=== PATIENT | male | born 1980 | race Caucasian/White ===

== ENCOUNTER 2022-07-25 11:13 | Emergency (ER) | payer SELFPAY ==
[2022-07-25] MEDS ORDERED: HYDROCODONE/APAP 10/325 TAB ONE (12:53)
[2022-07-25] MEDS ORDERED: LIDOCAINE 1% MPF 5 ML VIAL ONE (12:53)
--- NOTE | 2022-07-25 14:54 | EDPHYS ---
Physician Documentation [facility] Name: Mich Paz Age: 42 yrs Sex: Male : 1980 Arrival Date: 07/25/2022 Time: 11:14 Bed 11 Private MD: ED Physician Grayson Huerta HPI: 07/25 11:53 This 42 yrs old Male presents to ER via Ambulatory with complaints of spider bite, Arm jmm Pain - swelling. 11:53 the patient presents with a swollen area of the left arm. Onset: The symptoms/episode jmm began/occurred gradually, 5 day(s) ago. Possible cause(s): insect sting, spider bite. Associated signs and symptoms: Pertinent positives: swelling, Pertinent negatives: fever. Modifying factors: the symptoms are alleviated by nothing, the symptoms are aggravated by nothing. This is a 42-year-old male with no chronic medical conditions that presents emerged department with complaints of left arm swelling beginning after an insect bite which the patient initially noticed while working outside 5 days ago. Patient states that he felt the bite. Denies fever chills. Historical: - Allergies: 11:57 No Known Allergies; bm7 - Home Meds: 11:57 None [Active]; bm7 - PMHx: 11:57 None; bm7 - PSHx: 11:57 ankle; hand; bm7 - Immunization history:: Adult Immunizations up to date, Client reports having NOT received the Covid vaccine. - Social history:: Smoking status: Patient reports the use of cigarette tobacco products, smokes one pack cigarettes per day. ROS: 11:53 Constitutional: Negative for fever, chills, and weight loss, Cardiovascular: Negative jmm for chest pain, palpitations, and edema, Respiratory: Negative for shortness of breath, cough, wheezing, and pleuritic chest pain. 11:53 Skin: Positive for erythema, swelling. 11:53 All other systems are negative. Exam: 11:53 Constitutional: This is a well developed, well nourished patient who is awake, alert, jmm and in no acute distress. Head/Face: atraumatic. Eyes: EOMI, no conjunctival erythema appreciated ENT: Moist Mucus Membranes Neck: Trachea midline, Supple Chest/axilla: Normal chest wall appearance and motion. Cardiovascular: Regular rate and rhythm. No edema appreciated Respiratory: Normal respirations, no respiratory distress appreciated Abdomen/GI: Non distended Back: Normal ROM 11:53 Skin: Erythema and induration noted to the left upper extremity superior to the elbow. 11:53 Neuro: Orientation: is normal, Mentation: is normal, Memory: is normal. 11:53 Psych: Behavior/mood is pleasant, cooperative. Vital Signs: 11:56 BP 128 / 88; Pulse 100; Resp 16; Temp 97.2(TE); Pulse Ox 100% on R/A; Weight 104.33 kg bm7 (R); Height 5 ft. 11 in. (180.34 cm); Pain 8/10; 11:56 Body Mass Index 32.08 (104.33 kg, 180.34 cm) bm7 Procedures: 14:49 I \T\ D: Incision and drainage was performed for an abscess of the left arm Prepped with [facility] Betadine, Anesthetized with 10 ml's 1% Lidocaine. Incised with #11 blade. Drained large amount purulent fluid. Loculations removed. Packed with iodoform gauze, Dressing: sterile 4x4 gauze, the patient tolerated the procedure well. MDM: 11:54 Patient medically screened. [facility] 14:49 Data reviewed: vital signs, nurses notes. Counseling: I had a detailed discussion with [facility] the patient and/or guardian regarding: the historical points, exam findings, and any diagnostic results supporting the discharge/admit diagnosis. 14:50 Counseling: I had a detailed discussion with the patient and/or guardian regarding: the [facility] need for outpatient follow up, to return to the emergency department if symptoms worsen or persist or if there are any questions or concerns that arise at home. 14:50 ED course: Patient tolerated the I\T\D well. Large amount of purulent drainage was jm expressed. Wound was packed with iodoform gauze. Patient prescribed oral antibiotics and advised follow-up with general surgery for further evaluation. Patient otherwise given strict return precautions. Patient understood agrees plan of care.. 07 11:53 Order name: Incision \T\ Drainage Setup; Complete Time: 12:48 [facility] Administered Medications: 12:48 Drug: [place] (HYDROcodone-acetaminophen) 10 mg-325 mg 1 tabs Route: PO; vg1 13:10 Follow up: Response: No adverse reaction; Pain is decreased iw 15:17 Drug: Bactrim (trimethoprim-sulfamethoxazole) (160 mg-800 mg (DS) 1 tablet Route: PO; iw 15:30 Follow up: Response: No adverse reaction iw 15:17 Drug: Doxycycline 100 mg Route: PO; iw 15:30 Follow up: Response: No adverse reaction iw Disposition: 22:59 Co-signature as Attending Physician, Grayson Huerta DO I was immediately available on-site ms3 in the Emergency Department for consultation in the care of the patient. . Disposition Summary: 07/25/22 14:54 Discharge Ordered Location: Home [facility] Condition: Stable jm Diagnosis - Cutaneous Abscess of the Left Upper Extremity [facility] Followup: [facility] - With: Neil Jin MD - When: 2 - 3 days - Reason: Recheck today's complaints, Continuance of care, Re-evaluation by your physician Discharge Instructions: - Discharge Summary Sheet [facility] - Incision and Drainage [facility] Forms: - Medication Reconciliation Form [facility] - Thank You Letter [facility] - Antibiotic Education [facility] - Prescription Opioid Use [facility] Prescriptions: - Doxycycline Hyclate 100 mg Oral Tablet - take 1 tablet by ORAL route every 12 hours; 20 tablet; Refills: 0, Product [facility] Selection Permitted - Tramadol 50 mg Oral Tablet - take 1 tablet by ORAL route every 8 hours as needed; 20 tablet; Refills: 0, [facility] Product Selection Permitted - Bactrim DS 800-160 mg Oral Tablet - take 1 tablet by ORAL route every 12 hours for 10 days; 20 tablet; Refills: 0, [facility] Product Selection Permitted Signatures: Prashanth Rodriguez PA PA jmm Williams, Irene RN LOLI iw Jerica Conde RN RN vg1 Grayson Huerat DO DO ms3 Jeanne Souza, LOLI RN bm7
--- NOTE | 2022-07-25 14:54 | ER ---
Nurse's Notes [facility] Name: Mich Paz Age: 42 yrs Sex: Male : 1980 Arrival Date: 07/25/2022 Time: 11:14 Bed 11 Private MD: Diagnosis: Cutaneous Abscess of the Left Upper Extremity Presentation: 07/25 11:56 Chief complaint: Patient states: I got bit by a spider five days ago and now it is bm7 really infected. Coronavirus screen: At this time, the client does not indicate any symptoms associated with coronavirus-19. Ebola Screen: No symptoms or risks identified at this time. Initial Sepsis Screen: Does the patient meet any 2 criteria? No. Patient's initial sepsis screen is negative. Does the patient have a suspected source of infection? Yes: Skin breakdown/wound. Risk Assessment: Do you want to hurt yourself or someone else? Patient reports no desire to harm self or others. Onset of symptoms is unknown. 11:56 Method Of Arrival: Ambulatory [facility] 11:56 Acuity: NILSA 3 bm7 Triage Assessment: 11:57 General: Appears in no apparent distress. uncomfortable, Behavior is calm, cooperative, bm7 appropriate for age. Pain: Complains of pain in left antecubital area and left elbow Pain does not radiate. EENT: No deficits noted. No signs and/or symptoms were reported regarding the EENT system. Neuro: No deficits noted. Cardiovascular: No deficits noted. Respiratory: No deficits noted. GI: No deficits noted. No signs and/or symptoms were reported involving the gastrointestinal system. : No deficits noted. No signs and/or symptoms were reported regarding the genitourinary system. Derm: Skin is intact, is healthy with good turgor, Skin is dry, Skin temperature is warm Abscess located on left elbow is half dollar sized, has purulent drainage, has foul odor, is hot to touch, is red, Reports pain that is 10 out of 10 on a pain scale. Musculoskeletal: Reports pain in left elbow. Historical: - Allergies: 11:57 No Known Allergies; bm7 - Home Meds: 11:57 None [Active]; bm7 - PMHx: 11:57 None; bm7 - PSHx: 11:57 ankle; hand; bm7 - Immunization history:: Adult Immunizations up to date, Client reports having NOT received the Covid vaccine. - Social history:: Smoking status: Patient reports the use of cigarette tobacco products, smokes one pack cigarettes per day. Screenin:29 Abuse screen: Denies threats or abuse. Denies injuries from another. Nutritional iw screening: No deficits noted. Tuberculosis screening: No symptoms or risk factors identified. Fall Risk None identified. Assessment: 12:00 General: Appears in no apparent distress. Behavior is calm, cooperative. iw 12:00 Pain: Complains of pain in left arm and left elbow. Neuro: Level of Consciousness is iw awake, alert, obeys commands, Oriented to person, place, time, situation. Cardiovascular: Patient's skin is warm and dry. Respiratory: Respiratory effort is even, unlabored, Respiratory pattern is regular. Derm: Abscess located on left elbow is half dollar sized. Musculoskeletal: Range of motion: intact in all extremities. Vital Signs: 11:56 BP 128 / 88; Pulse 100; Resp 16; Temp 97.2(TE); Pulse Ox 100% on R/A; Weight 104.33 kg bm7 (R); Height 5 ft. 11 in. (180.34 cm); Pain 8/10; 11:56 Body Mass Index 32.08 (104.33 kg, 180.34 cm) bm7 ED Course: 11:14 Patient arrived in ED. am2 11:20 Prashanth Rodriguez PA is PHCP. m 11:20 Grayson Huerta DO is Attending Physician. jmm 11:57 Triage completed. bm7 11:57 Arm band placed on right wrist. bm7 12:00 Patient has correct armband on for positive identification. iw 12:37 Natali Potts, RN is Primary Nurse. iw 14:54 Neil Jin MD is Referral Physician. jmm 15:00 Assist provider with I \T\ D: of an abscess on left elbow Set up I\T\D tray. Performed by iw Prashanth CLAYTON Wound packed. iodoform gauze, Dressing with 4X4s, tape Patient tolerated well. Patient did not have IV access during this emergency room visit. Administered Medications: 12:48 Drug: [place] (HYDROcodone-acetaminophen) 10 mg-325 mg 1 tabs Route: PO; vg1 13:10 Follow up: Response: No adverse reaction; Pain is decreased iw 15:17 Drug: Bactrim (trimethoprim-sulfamethoxazole) (160 mg-800 mg (DS) 1 tablet Route: PO; iw 15:30 Follow up: Response: No adverse reaction iw 15:17 Drug: Doxycycline 100 mg Route: PO; iw 15:30 Follow up: Response: No adverse reaction iw Medication: 15:30 VIS not applicable for this client. iw Outcome: 14:54 Discharge ordered by MD. ceballos 15:29 Discharged to home ambulatory. iw 15:29 Condition: good 15:29 Discharge instructions given to patient, Instructed on discharge instructions, follow up and referral plans. medication usage, Demonstrated understanding of instructions, follow-up care, medications, Prescriptions given X 2. 15:30 Patient left the ED. iw Signatures: Prashanth Rodriguez PA PA jmm Williams, Irene, RN RN iw Shannon Mosqueda Victoria, RN RN vg1 Jeanne Souza, RN RN bm7 Corrections: (The following items were deleted from the chart) 07/26 07:25 07/25 15:00 General: Appears in no apparent distress. iw iw
[2022-07-25] MEDS ORDERED: DOXYCYCLINE 100 MG CAP PO ONE (15:16)
[2022-07-25] MEDS ORDERED: SMZ./TMP. 800/160 MG TABLET ONE (15:16)
[2022-07-25 16:00] VITALS: BP 128/88; TEMP 97.2; O2SAT 100
== END 2022-07-25 15:30 | disposition home or self-care (01) ==
LOC: ER 11:13
PROC: 0H9CXZZ Drainage of Left Upper Arm Skin, External Approach (ICD-10-PCS; principal; 2022-07-25)
DX: L02.414 Cutaneous abscess of left upper limb (principal); F17.210 Nicotine dependence, cigarettes, uncomplicated
CPT/HCPCS: 99283; J2001

== ENCOUNTER 2022-12-09 19:46 | Emergency (ER) | payer SELFPAY ==
[2022-12-09] MEDS ORDERED: KETOROLAC 30 MG/ML INJ ONE (20:11)
[2022-12-09] MEDS ORDERED: ONDANSETRON 4 MG/2 ML VIAL ONE (20:11)
[2022-12-09] MEDS ORDERED: NA CHLORIDE 0.9% 1,000 ML ONE (20:11)
[2022-12-09 20:33] LABS: Absolute Lymphocytes (CBC) 1.8 K/uL (0.7-4.9); Hematocrit 46.3 % (39.6-49.0); Lymphocytes % 17.8 % (15.3-44.8); MCV 89.2 fL (80-100); RBC Red Blood Cell Count 5.19 M/uL (4.33-5.43)
[2022-12-09 20:37] LABS: Albumin 3.5 g/dL (3.4-5.0); Bilirubin Total 0.7 mg/dL (0.2-1.0); Protein, Total 6.7 g/dL (6.4-8.2)
--- NOTE | 2022-12-09 20:51 | RAD REPORT ---
EXAM DESCRIPTION: CT - Stone Protocol - 12/09/2022 8:42 pm CLINICAL HISTORY: Flank pain. hematuria COMPARISON: No comparisons TECHNIQUE: Axial images were obtained without oral or IV contrast. Lack of contrast limits solid org an and vascular assessment. The [id number] spans the entirety of the system partially obscuring uppermost abdomen and lung bases. Coronal reformatted images were obtained and reviewed. All CT scans are performed using dose optimization technique as appropriate and may include automated exposure control or mA/KV adjustment according to patient size. FINDINGS: The lower lung maguire are clear. Imaged portions of the liver and spleen show no suspicious findings on non-contrast imaging. The panc reas and adrenal glands are normal. No pathologic lymphadenopathy in the abdomen or pelvis. Punctate calculus is seen in the inferior calyx right kidney. No hydronephrosis. No bowel obstruction, free air, free fluid or abscess. Normal appendix noted. No significant bony abnormality. IMPRESSION: Punctate calculus inferior calyx right kidney. No hydronephrosis.
[2022-12-09] MEDS ORDERED: LIDOCAINE 4% PATCH ONE (21:23)
[2022-12-09 21:54] LABS: Urine Blood Negative (Negative); Urine Glucose Negative (Negative); Urine Protein Negative (Negative); Urine Specific Gravity >=1.030 (1.005-1.030); Urine pH 6.5 (5.0-7.0)
[2022-12-09 22:14] LABS: Urine Bacteria None Seen /HPF (<20); Urine Mucus Slight /HPF (None Seen); Urine RBC None Seen /HPF (None Seen)
--- NOTE | 2022-12-09 22:17 | EDPHYS ---
Physician Documentation [facility] Name: Mich Paz Age: 42 yrs Sex: Male : 1980 Arrival Date: 12/09/2022 Time: 19:47 Bed 2 Private MD: ED Physician Ta Quinn HPI: 12/09 22:00 This 42 yrs old Male presents to ER via EMS with complaints of Right Low Back Pain, cp Hematuria. 22:00 The patient presents with pain that is acute, with no known mechanism of injury. The cp symptoms are located in the right low back. 22:00 Onset: The symptoms/episode began/occurred gradually, 3 hour(s) ago. The pain does not cp radiate. Associated signs and symptoms: Pertinent positives: hematuria times 1 week, Pertinent negatives: abdominal pain, constipation, dysuria, fever, incontinence. The problem was sustained from unknown cause. Patient brought to ED by law enforcement with c/o right lower back pain and hematuria for 1 week. Historical: - Allergies: 20:00 No Known Allergies; pf1 - Home Meds: 20:00 None [Active]; pf1 - PSHx: 20:00 Ankle; hand; pf1 - Immunization history:: Adult Immunizations not up to date. - Social history:: Smoking status: unknown. ROS: 22:05 Constitutional: Negative for body aches, chills, fever, poor PO intake. cp 22:05 Eyes: Negative for injury, pain, redness, and discharge. cp 22:05 Cardiovascular: Negative for chest pain, palpitations. 22:05 Respiratory: Negative for cough, shortness of breath, wheezing. 22:05 Abdomen/GI: Negative for abdominal pain, vomiting, diarrhea, constipation. 22:05 Back: Positive for right low back pain. 22:05 : Positive for hematuria, Negative for burning with urination, difficulty urinating, testicular pain 22:05 Skin: Negative for cellulitis, rash. 22:05 All other systems are negative. Exam: 22:10 Constitutional: The patient appears in no acute distress, alert, awake, non-toxic, well cp developed, well nourished, uncomfortable. 22:10 Head/Face: Normocephalic, atraumatic. cp 22:10 Eyes: Periorbital structures: appear normal, Conjunctiva: normal, no exudate, no injection, Sclera: no appreciated abnormality, Lids and lashes: appear normal, bilaterally. 22:10 ENT: External ear(s): are unremarkable, Nose: is normal, Mouth: Lips: moist, Oral mucosa: pink and intact, moist, Posterior pharynx: is normal, airway is patent, no erythema, no exudate. 22:10 Chest/axilla: Inspection: normal. 22:10 Cardiovascular: Rate: normal, Rhythm: regular. 22:10 Respiratory: the patient does not display signs of respiratory distress, Respirations: normal, no use of accessory muscles, no retractions, labored breathing, is not present, Breath sounds: are clear throughout, no decreased breath sounds, no stridor, no wheezing. 22:10 Abdomen/GI: Inspection: abdomen appears normal, Bowel sounds: active, all quadrants, Palpation: soft, in all quadrants, moderate abdominal tenderness, in the posterior aspect of right lateral abdomen, rebound tenderness, is not appreciated. 22:10 Back: pain, that is moderate, of the right low back, ROM is painful, with all movement, vertebral tenderness, is not appreciated. 22:10 Skin: cellulitis, is not appreciated, no rash present. 22:10 Neuro: Orientation: to person, place \T\ time. Mentation: is normal, Motor: moves all fours, strength is normal, Sensation: is normal. Vital Signs: 19:47 BP 126 / 94; Pulse 74; Resp 18; Temp 97.9; Pulse Ox 98% on R/A; Weight 97.52 kg; Height pf1 5 ft. 11 in. (180.34 cm); Pain 8/10; 20:30 BP 131 / 86; Pulse 86; Resp 18; Pulse Ox 98% on R/A; Pain 6/10; pf1 21:50 BP 119 / 74; Pulse 74; Resp 18; Pulse Ox 98% on R/A; Pain 6/10; pf1 22:29 BP 127 / 78; Pulse 74; Resp 18; Temp 97.9(O); Pulse Ox 98% on R/A; Pain 7/10; pf1 19:47 Body Mass Index 29.99 (97.52 kg, 180.34 cm) pf1 MDM: 19:59 Patient medically screened. cp 22:16 Data reviewed: vital signs, nurses notes, lab test result(s), radiologic studies, CT cp scan. 12/09 20:02 Order name: CBC with Diff; Complete Time: 21:01 cp 12/09 21:01 Interpretation: Normal except: PLT 148. cp 12/09 20:02 Order name: CMP; Complete Time: 21:01 cp 12/09 21:02 Interpretation: Reviewed. cp 12/09 20:02 Order name: Lipase; Complete Time: 21:01 cp 12/09 20:02 Order name: Urine Microscopic Only; Complete Time: 22:15 cp 12/09 22:16 Interpretation: Reviewed. cp 12/09 20:02 Order name: CT Stone Protocol; Complete Time: 21:01 cp 12/09 21:02 Interpretation: Report reviewed. cp 12/09 21:54 Order name: Urine Dipstick-Ancillary; Complete Time: 22:00 EDMS 12/09 20:02 Order name: IV Saline Lock; Complete Time: 20:15 cp 12/09 20:02 Order name: Labs collected and sent; Complete Time: 20:15 cp Administered Medications: 20:22 Drug: NS 0.9% 1000 ml Route: IV; Rate: 1 bolus; Site: left antecubital; aa9 21:20 Follow up: IV Status: Completed infusion; IV Intake: 1000ml pf1 20:22 Drug: Zofran (Ondansetron) 4 mg Route: IVP; Site: left antecubital; aa9 21:38 Follow up: Response: No adverse reaction aa9 20:22 Drug: Ketorolac 15 mg Route: IVP; Site: left antecubital; aa9 21:20 Follow up: Response: No adverse reaction; Pain is decreased; RASS: Alert and Calm (0) pf1 21:24 Drug: Lidoderm Patch 5 % (700 mg/patch) 1 patches {Note: lower back.} Route: Topical; aa9 Site: affected area; Disposition: 12/10 02:36 Co-signature as Attending Physician, Ta Quinn MD I reviewed the patient's care rt provided by the Advanced Practice Provider and agree with the diagnosis and treatment plan. Disposition Summary: 12/09/22 22:16 Discharge Ordered Location: Home cp Problem: new cp Symptoms: have improved cp Condition: Stable cp Diagnosis - Low back pain cp Followup: cp - With: Private Physician - When: 2 - 3 days - Reason: Recheck today's complaints Discharge Instructions: - Discharge Summary Sheet cp - Acute Back Pain, Adult cp Forms: - Medication Reconciliation Form cp - Thank You Letter cp - Antibiotic Education cp - Prescription Opioid Use cp Prescriptions: - Cyclobenzaprine 10 mg Oral Tablet - take 1 tablet by ORAL route every 8 hours As needed; 20 tablet; Refills: 0, cp Product Selection Permitted - Diclofenac Sodium 75 mg Oral tablet,delayed release (DR/EC) - take 1 tablet by ORAL route 2 times per day; 20 tablet; Refills: 0, Product cp Selection Permitted Signatures: Dispatcher [employer] EDMS Joss Zamora PA PA cp Avalos, Aylin, RN RN aa9 Ta Quinn MD MD rt Jackie duran RN RN pf1
--- NOTE | 2022-12-09 22:17 | ER ---
Nurse's Notes [facility] Name: Mich Paz Age: 42 yrs Sex: Male : 1980 Arrival Date: 12/09/2022 Time: 19:47 Bed 2 Private MD: Diagnosis: Low back pain Presentation: 12/09 19:47 Chief complaint: Patient states: C/O intermittent right flank pain 8,onset 3 hours ago pf1 with hematuria,onset 1 week. 19:47 Coronavirus screen: Vaccine status: Patient reports being unvaccinated. Client denies pf1 travel out of the [place] in the last 14 days. At this time, the client does not indicate any symptoms associated with coronavirus-19. Ebola Screen: Patient negative for fever greater than or equal to 101.5 degrees Fahrenheit, and additional compatible Ebola Virus Disease symptoms. Initial Sepsis Screen: Does the patient meet any 2 criteria? No. Patient's initial sepsis screen is negative. Does the patient have a suspected source of infection? No. Patient's initial sepsis screen is negative. Risk Assessment: Do you want to hurt yourself or someone else? Patient reports no desire to harm self or others. Onset of symptoms was December 02, 2022. 19:47 Method Of Arrival: EMS: [facility] pf1 19:47 Acuity: NILSA 3 pf1 Triage Assessment: 19:47 General: see nurse assessment. pf1 Historical: - Allergies: 20:00 No Known Allergies; pf1 - Home Meds: 20:00 None [Active]; pf1 - PSHx: 20:00 Ankle; hand; pf1 - Immunization history:: Adult Immunizations not up to date. - Social history:: Smoking status: unknown. Screenin:50 [facility] ED Fall Risk Assessment (Adult) History of falling in the last 3 months, pf1 including since admission No falls in past 3 months (0 pts) Confusion or Disorientation No (0 pts) Intoxicated or Sedated No (0 pts) Impaired Gait No (0 pts) Mobility Assist Device Used No (0 pt) Altered Elimination No (0 pt) Score/Fall Risk Level 0 - 2 = Low Risk Oriented to surroundings, Maintained a safe environment, Educated pt \T\ family on fall prevention, incl call for assistance when getting out of bed, Assessed \T\ reinforced patient's understanding of fall precautions, Provided non-skid footwear, Hourly rounding (assess needs \T\ fall precautionary measures) done, Used ambulatory aids as needed (educated on \T\ assisted with), Used gait belt as appropriate. 21:33 Abuse screen: Denies threats or abuse. Denies injuries from another. Nutritional aa9 screening: No deficits noted. Tuberculosis screening: No symptoms or risk factors identified. Assessment: 19:47 General: Appears in no apparent distress. uncomfortable, well groomed, well developed, pf1 Behavior is calm, cooperative, appropriate for age, quiet. 19:47 Pain: Complains of pain in right low back Pain currently is 8 out of 10 on a pain pf1 scale. Pain began 3 hours ago. Neuro: No deficits noted. Level of Consciousness is awake, alert, obeys commands, Oriented to person, place, time, situation. Cardiovascular: No deficits noted. Capillary refill < 3 seconds Patient's skin is warm and dry. Respiratory: No deficits noted. Airway is patent Trachea midline Respiratory effort is even, unlabored, Respiratory pattern is regular, symmetrical, Breath sounds are clear bilaterally. GI: No deficits noted. Abdomen is flat, non-distended, Bowel sounds present X 4 quads. Abd is soft and non tender X 4 quads. : Reports hematuria for 1 week, denies any blood clots. EENT: No deficits noted. No signs and/or symptoms were reported regarding the EENT system. Derm: No deficits noted. No signs and/or symptoms reported regarding the dermatologic system. Musculoskeletal: No signs and/or symptoms reported regarding the musculoskeletal system. Reports pain in right low back. 20:30 Reassessment: Patient appears in no apparent distress at this time. Patient and/or pf1 family updated on plan of care and expected duration. Pain level reassessed. Patient states feeling better. Patient states symptoms have improved. Patient C/O right lower back pian of 6 at this time.. 21:32 General: Appears uncomfortable, Behavior is calm, cooperative, appropriate for age. aa9 Pain: Complains of pain in left low back and right low back. Neuro: Level of Consciousness is awake, alert, obeys commands, Oriented to person, place, time, situation. Respiratory: Airway is patent Respiratory effort is even, unlabored. Vital Signs: 19:47 BP 126 / 94; Pulse 74; Resp 18; Temp 97.9; Pulse Ox 98% on R/A; Weight 97.52 kg; Height pf1 5 ft. 11 in. (180.34 cm); Pain 8/10; 20:30 BP 131 / 86; Pulse 86; Resp 18; Pulse Ox 98% on R/A; Pain 6/10; pf1 21:50 BP 119 / 74; Pulse 74; Resp 18; Pulse Ox 98% on R/A; Pain 6/10; pf1 22:29 BP 127 / 78; Pulse 74; Resp 18; Temp 97.9(O); Pulse Ox 98% on R/A; Pain 7/10; pf1 19:47 Body Mass Index 29.99 (97.52 kg, 180.34 cm) pf1 ED Course: 19:47 Patient arrived in ED. rv1 19:47 No provider procedures requiring assistance completed. Maintain EMS IV. Dressing pf1 intact. Good blood return noted. Site clean \T\ dry. Gauge \T\ site: 18 gauge to LAC. 19:50 Patient has correct armband on for positive identification. Placed in gown. Bed in low pf1 position. Call light in reach. Side rails up X 1. chief operations officer at . 19:50 Arm band placed on right wrist. pf1 19:52 Jackie duran RN is Primary Nurse. pf1 19:54 Joss Zamora PA is PHCP. cp 19:54 Ta Quinn MD is Attending Physician. cp 20:00 Triage completed. pf1 20:22 CBC with Diff Sent. aa9 20:22 CMP Sent. aa9 20:22 Lipase Sent. aa9 20:44 CT Stone Protocol In Process Unspecified. EDMS 22:30 IV discontinued, intact, bleeding controlled, No redness/swelling at site. Pressure pf1 dressing applied. Administered Medications: 20:22 Drug: NS 0.9% 1000 ml Route: IV; Rate: 1 bolus; Site: left antecubital; aa9 21:20 Follow up: IV Status: Completed infusion; IV Intake: 1000ml pf1 20:22 Drug: Zofran (Ondansetron) 4 mg Route: IVP; Site: left antecubital; aa9 21:38 Follow up: Response: No adverse reaction aa9 20:22 Drug: Ketorolac 15 mg Route: IVP; Site: left antecubital; aa9 21:20 Follow up: Response: No adverse reaction; Pain is decreased; RASS: Alert and Calm (0) pf1 21:24 Drug: Lidoderm Patch 5 % (700 mg/patch) 1 patches {Note: lower back.} Route: Topical; aa9 Site: affected area; Medication: 22:32 VIS not applicable for this client. pf1 Intake: 21:20 IV: 1000ml; Total: 1000ml. pf1 Outcome: 22:16 Discharge ordered by . cp 22:31 Discharged to Law Enforcement pf1 22:31 Condition: improved 22:31 Discharge instructions given to patient, Instructed on discharge instructions, follow up and referral plans. medication usage, Demonstrated understanding of instructions, follow-up care, medications, Prescriptions given X 2. 22:33 Patient left the ED. pf1 Signatures: Dispatcher [employer] EDMS Joss Zamora PA PA cp Avalos, Aylin, RN RN aa9 Jackie duran RN RN pf1 Cielo Garzon 1
[2022-12-09 23:28] VITALS: TEMP 97.9; O2SAT 98
[2022-12-09 23:32] VITALS: BP 127/78
== END 2022-12-09 22:33 | disposition home or self-care (01) ==
LOC: ER 19:46
DX: M54.50 Low back pain, unspecified (principal); R31.9 Hematuria, unspecified
CPT/HCPCS: 36415; 74176; 76377; 80053; 81003; 81015; 83690; 85025; 96361; 96374; 96375; 99284; J2001; J2405; J7030